=== PATIENT | female | born 1945 | race Caucasian/White ===

== ENCOUNTER → 2017-08-07 | Outpatient (CLI) | payer OTHER ==
[~2017-08-07] MED LIST: TIZANIDINE HCL2 MG PO
== END | disposition home or self-care (01) ==
LOC: MRI 10:00
DX: M54.17 Radiculopathy, lumbosacral region (principal)
CPT/HCPCS: 72148

== ENCOUNTER → 2017-12-02 | Outpatient (CLI) | payer OTHER | END | disposition home or self-care (01) | LOC: MAMO-SONO 11:47 | DX: Z12.31 Encounter for screening mammogram for malignant neoplasm of breast (principal); Z87.898 Personal history of other specified conditions; N60.11 Diffuse cystic mastopathy of right breast; N60.12 Diffuse cystic mastopathy of left breast ==

== ENCOUNTER → 2018-09-06 | Outpatient (CLI) | payer OTHER | END | disposition home or self-care (01) | LOC: LAB 09:02 | DX: D50.8 Other iron deficiency anemias (principal); N30.00 Acute cystitis without hematuria; I10 Essential (primary) hypertension; E78.49 Other hyperlipidemia; Z12.11 Encounter for screening for malignant neoplasm of colon; E55.9 Vitamin D deficiency, unspecified ==

== ENCOUNTER 2018-09-09 10:16 | Outpatient (CLI) | payer OTHER | END 2018-09-09 10:18 | disposition home or self-care (01) | LOC: NUCLEAR 10:16 | DX: M81.0 Age-related osteoporosis without current pathological fracture (principal) ==

== ENCOUNTER 2018-10-30 18:30 | Emergency (ER) | payer OTHER ==
[~2018-10-30] VITALS: Ht 160 cm; Wt 63.5 kg
[2018-10-30] MEDS ORDERED: ZOCOR20 MG (18:38)
[2018-10-30] MEDS ORDERED: TOPROL XL50 M1 (18:39)
== END 2018-10-30 21:01 | disposition home or self-care (01) ==
LOC: ER 18:30
DX: S00.81XA Abrasion of other part of head, initial encounter (principal); S50.312A Abrasion of left elbow, initial encounter; S80.812A Abrasion, left lower leg, initial encounter; W18.39XA Other fall on same level, initial encounter; Y93.89 Activity, other specified; Y92.512 Supermarket, store or market as the place of occurrence of the external cause; Y99.8 Other external cause status

== ENCOUNTER 2019-03-18 14:32 | Outpatient (CLI) | payer OTHER ==
[~2019-03-18 14:32] MED LIST changes: +TOPROL XL50 M1; +ZOCOR20 MG
[2019-03-18] MEDS ORDERED: OSEL75CA PO (17:09)
[2019-03-18] MEDS ORDERED: DELSYM30 MG/5 M1 PO (17:09)
[2019-03-18] MEDS ORDERED: TYLENOL COLD H1 EAC1 PO (17:09)
== END 2019-03-18 14:40 | disposition home or self-care (01) ==
LOC: LAB 14:32
DX: J11.1 Influenza due to unidentified influenza virus with other respiratory manifestations (principal)

== ENCOUNTER 2019-03-18 16:01 | Emergency (ER) | payer OTHER ==
[~2019-03-18] VITALS: Ht 160 cm; Wt 64.4 kg
[2019-03-18] MEDS ORDERED: TYLENOL COLD H1 EAC1 PO (17:09)
[2019-03-18] MEDS ORDERED: DELSYM30 MG/5 M1 PO (17:09)
[2019-03-18] MEDS ORDERED: OSEL75CA PO (17:09)
== END 2019-03-18 17:17 | disposition home or self-care (01) ==
LOC: ER 16:01
DX: J09.X2 Influenza due to identified novel influenza A virus with other respiratory manifestations (principal)

== ENCOUNTER 2020-01-11 13:53 | Outpatient (CLI) | payer OTHER ==
[~2020-01-11 13:53] MED LIST changes: +DELSYM30 MG/5 M1 PO; +OSEL75CA PO; +TYLENOL COLD H1 EAC1 PO
== END 2020-01-11 14:11 | disposition home or self-care (01) ==
LOC: RAD 13:53
PROVIDERS: ATTEND Internal Medicine Rheumatology
DX: M15.8 Other polyosteoarthritis (principal); M46.1 Sacroiliitis, not elsewhere classified; M51.27 Other intervertebral disc displacement, lumbosacral region

== ENCOUNTER 2020-07-03 11:56 | Outpatient (CLI) | payer OTHER | END 2020-07-04 07:37 | disposition home or self-care (01) | LOC: RAD 11:56 | PROVIDERS: ATTEND Internal Medicine Rheumatology | DX: K80.80 Other cholelithiasis without obstruction (principal); M47.817 Spondylosis without myelopathy or radiculopathy, lumbosacral region; M50.323 Other cervical disc degeneration at C6-C7 level; M54.5 Low back pain; M48.07 Spinal stenosis, lumbosacral region | CPT/HCPCS: 72148 ==

== ENCOUNTER → 2020-07-03 12:23 | Outpatient (CLI) | payer OTHER | END | disposition home or self-care (01) | LOC: LAB 12:23 | PROVIDERS: ATTEND Family Medicine | DX: H16.223 Keratoconjunctivitis sicca, not specified as Sjogren's, bilateral (principal); D64.89 Other specified anemias ==

== ENCOUNTER → 2020-07-10 07:00 | Outpatient (CLI) | payer OTHER | END | disposition home or self-care (01) | LOC: PPH VACUNA 07:00 | PROVIDERS: ATTEND Emergency Medicine Pediatric Emergency Medicine | DX: Z23 Encounter for immunization (principal) ==

== ENCOUNTER 2021-03-01 08:00 | Outpatient (CLI) | payer OTHER | END 2021-03-01 08:30 | disposition home or self-care (01) | LOC: PPH VACUNA 08:00 | PROVIDERS: ATTEND Emergency Medicine Pediatric Emergency Medicine | DX: Z23 Encounter for immunization (principal) ==

== ENCOUNTER → 2021-06-10 11:17 | Outpatient (CLI) | payer OTHER | END | disposition home or self-care (01) | LOC: LAB 11:17 | PROVIDERS: ATTEND Emergency Medicine Pediatric Emergency Medicine | DX: Z20.828 Contact with and (suspected) exposure to other viral communicable diseases (principal) ==

== ENCOUNTER 2021-10-01 10:57 | Outpatient (CLI) | payer OTHER | END 2021-10-01 10:58 | disposition home or self-care (01) | LOC: MAMO-SONO 10:57 | PROVIDERS: ATTEND Internal Medicine Geriatric Medicine | DX: Z12.31 Encounter for screening mammogram for malignant neoplasm of breast (principal); C50.919 Malignant neoplasm of unspecified site of unspecified female breast; N63.0 Unspecified lump in unspecified breast; N64.4 Mastodynia; N60.12 Diffuse cystic mastopathy of left breast; N60.11 Diffuse cystic mastopathy of right breast ==

== ENCOUNTER 2021-10-28 13:30 | Outpatient (CLI) | payer OTHER | END 2021-10-28 13:50 | disposition home or self-care (01) | LOC: PPH VACUNA 13:30 | PROVIDERS: ATTEND Emergency Medicine Pediatric Emergency Medicine | DX: Z23 Encounter for immunization (principal) ==

== ENCOUNTER 2021-11-08 10:41 | Outpatient (CLI) | payer OTHER | END 2021-11-08 12:42 | disposition home or self-care (01) | LOC: LAB 10:41 | PROVIDERS: ATTEND Emergency Medicine Pediatric Emergency Medicine | DX: Z03.818 Encounter for observation for suspected exposure to other biological agents ruled out (principal) ==

== ENCOUNTER 2022-01-01 11:54 | Outpatient (CLI) | payer OTHER | END 2022-01-01 12:07 | disposition home or self-care (01) | LOC: MRI 11:54 | PROVIDERS: ATTEND Physical Medicine & Rehabilitation | DX: M25.511 Pain in right shoulder (principal) | CPT/HCPCS: 73221 ==

== ENCOUNTER 2022-02-19 13:19 | Outpatient (CLI) | payer OTHER | END 2022-02-19 13:29 | disposition home or self-care (01) | LOC: PPH VACUNA 13:19 | PROVIDERS: ATTEND Emergency Medicine Pediatric Emergency Medicine | DX: Z23 Encounter for immunization (principal) ==

== ENCOUNTER 2022-04-02 12:17 | Outpatient (CLI) | payer OTHER | END 2022-04-02 12:21 | disposition home or self-care (01) | LOC: RAD 12:17 | PROVIDERS: ATTEND Internal Medicine Rheumatology | DX: M15.8 Other polyosteoarthritis (principal); M25.562 Pain in left knee; M25.561 Pain in right knee ==

== ENCOUNTER 2022-11-05 09:16 | Outpatient (CLI) | payer OTHER | END 2022-11-05 09:19 | disposition home or self-care (01) | LOC: NUCLEAR 09:16 | PROVIDERS: ATTEND Internal Medicine Rheumatology | DX: I87.2 Venous insufficiency (chronic) (peripheral) (principal) ==

== ENCOUNTER 2023-01-28 10:31 | Outpatient (CLI) | payer OTHER | END 2023-01-28 10:41 | disposition home or self-care (01) | LOC: MAMO-SONO 10:31 | PROVIDERS: ATTEND Internal Medicine Geriatric Medicine | DX: Z12.31 Encounter for screening mammogram for malignant neoplasm of breast (principal); C50.919 Malignant neoplasm of unspecified site of unspecified female breast; N63.0 Unspecified lump in unspecified breast; N64.4 Mastodynia; N60.11 Diffuse cystic mastopathy of right breast; N60.12 Diffuse cystic mastopathy of left breast ==

== ENCOUNTER 2023-08-28 10:04 | Outpatient (CLI) | payer OTHER | END 2023-08-28 10:17 | disposition home or self-care (01) | LOC: RAD 10:04 | DX: M25.542 Pain in joints of left hand (principal) ==

== ENCOUNTER 2024-06-27 11:17 | Outpatient (CLI) | payer OTHER ==
[~2024-06-27 11:17] MED LIST changes: +CYMBALTA30 MG PO; +MEDROLPACK PO; +METHOCARBAMOL500 MG PO
[2024-06-27 16:16] LABS: MYCOPLASMA PNEUMONIAE IGM NON REACTIVE (NO REACTIVE)
== END 2024-06-27 12:41 | disposition home or self-care (01) ==
LOC: LAB 11:17
PROVIDERS: ATTEND Emergency Medicine
DX: U07.1 COVID-19 (principal)

== ENCOUNTER 2024-10-27 11:38 | Outpatient (CLI) | payer OTHER | END 2024-10-27 11:41 | disposition home or self-care (01) | LOC: NUCLEAR 11:38 | PROVIDERS: ATTEND Internal Medicine Rheumatology | DX: M81.0 Age-related osteoporosis without current pathological fracture (principal) ==

== ENCOUNTER → 2025-02-28 | Outpatient (CLI) | payer OTHER ==
[~2025-02-28] MED LIST changes: +GABAPENTIN300 MG PO; +OMEPRAZOLE-BIC1 EAC1 PO
== END | disposition home or self-care (01) ==
LOC: MAMO-SONO 10:57
PROVIDERS: ATTEND Internal Medicine Geriatric Medicine
DX: N64.4 Mastodynia (principal); N63.0 Unspecified lump in unspecified breast; N60.12 Diffuse cystic mastopathy of left breast; N60.11 Diffuse cystic mastopathy of right breast; C50.919 Malignant neoplasm of unspecified site of unspecified female breast; Z12.31 Encounter for screening mammogram for malignant neoplasm of breast; M75.51 Bursitis of right shoulder; M75.101 Unspecified rotator cuff tear or rupture of right shoulder, not specified as traumatic
CPT/HCPCS: 73221

== ENCOUNTER 2025-03-01 13:55 | Inpatient (IN) | payer OTHER ==
[~2025-03-01] VITALS: Ht 160 cm; Wt 57.2 kg
[~2025-03-01 13:55] MED LIST changes: -GABAPENTIN300 MG PO; -OMEPRAZOLE-BIC1 EAC1 PO
[2025-03-01 14:33] LABS: BASO % 0.4 % (0.1-1.2); EOS # 0.14 (0.04-0.54); EOS % 1.7 % (0.7-7.0); LYMPH # 2.60 (1.18-3.74); LYMPH % 32.2 % (19.3-53.1); MEAN PLATELET VOLUME 9.20 fl (9.4-12.4); MONO # 0.77 (0.24-0.82); MONO % 9.5 % (4.7-12.5); NEUT # 4.53 (1.56-6.13); NEUT % 56.1 % (34.0-71.1); RED CELL DISTRIBUTION WIDTH 14.6 % (11.6-14.4)
[2025-03-01 14:59] LABS: ALT/SGPT 24.0 U/L (12-78); AST/SGOT 25.0 U/L (15-37); BILIRUBIN TOTAL 0.56 mg/dL (0.3-1.2); BUN CREA RATIO 25.0 (7.0-25.0); CREATININE SERUM 0.85 mg/dL (0.55-1.02); GFR 64.35; GLOBULINA 3.8 G/DL (2.4-3.5); GLUCOSE FASTING 95.0 mg/dL (65-100); OSMOLALITY SERUM 288.0 MOSM/KG (275-295)
[2025-03-01 15:08] LABS: URINE APPEARANCE Clear; URINE BILIRRUBIN Negative (NEGATIVE); URINE BLOOD Negative; URINE COLOR Yellow; URINE GLUCOSE Negative (NEGATIVE); URINE KETONE Negative (NEGATIVE); URINE LEUKOCYTE Small; URINE NITRATE Negative; URINE PROTEIN Negative (NEGATIVE); URINE UROBILINOGEN 0.2 E.U./dl
[2025-03-01 15:12] LABS: URINE BACTERIA 169.1 uL (0.0-1933); URINE EPITHELIAL CELLS 12.9 uL (0.0-38.8); URINE RBC 9.2 uL (0.0-20.8); URINE WBC 18.9 uL (0.0-23.2)
[2025-03-01 15:16] LABS: URINE CAST 0.00 uL (0.0-1.40)
[2025-03-01] MEDS ORDERED: FAMOTIDINE/PF 20 MG in 0.9 % SODIUM CHLORIDE 8 ML IV PUSH SCH (16:25)
[2025-03-01] MEDS ORDERED: 0.9 % SODIUM CHLORIDE 1,000 ML IV SCH (16:30)
[2025-03-01] MEDS ORDERED: ACETAMINOPHEN 500 MG GEL..CAP PO PRN (16:30)
[2025-03-01] MEDS ORDERED: ENOXAPARIN SODIUM 40 MG/0.4 ML SYRINGE SUBCUTANEO SCH (17:12)
[2025-03-01] MEDS ORDERED: GABAPENTIN 300 MG CAPSULE PO SCH (17:13)
[2025-03-01] MEDS ORDERED: LABETALOL HCL 100 MG/20 ML ML IV PUSH PRN (17:15)
[2025-03-01] MEDS ORDERED: ATORVASTATIN CALCIUM 40 MG TABLET PO SCH (17:16)
[2025-03-01] MEDS ORDERED: FAMOTIDINE/PF 20 MG/2 ML VIAL ONE (17:33)
[2025-03-01 17:54] LABS: ABG PH 7.425 (7.35-7.45); ABG PO2 94.2 mmHg (80-100); BICARBONATE 24.9 mmol/l (23-25); o2 21 %
[2025-03-01 18:30] LABS: COVID-19 AG NEGATIVE (NEGATIVE)
[2025-03-01 19:18] VITALS: BP 165/77; O2SAT 97
[2025-03-01 19:47] LABS: INR 1.01
[2025-03-01] MEDS ORDERED: DEXAMETHASONE SODIUM PHOSPHATE 4 MG/ML VIAL IV SCH (21:00)
[2025-03-02 01:33] VITALS: BP 127/78; O2SAT 97
[2025-03-02 08:28] VITALS: BP 142/82; O2SAT 95
[2025-03-02] MEDS ORDERED: GABAPENTIN300 MG PO (14:55)
[2025-03-02] MEDS ORDERED: MEDROLPACK PO (14:55)
[2025-03-02] MEDS ORDERED: OMEPRAZOLE-BIC1 EAC1 PO (15:03)
[2025-03-02] MEDS ORDERED: ROSUVASTATIN CALCIUM 20 MG TABLET PO SCH (17:00)
[2025-03-03] MEDS ORDERED: PATIENTS OWN MEDICATION (MEDICAMENTO EN PISO) PO SCH ×2 (06:00→09:00)
== END 2025-03-02 15:38 | disposition home or self-care (01) | DRG 948 ==
LOC: ER 13:55 → SURH 16:53 → SEC-K 16:53 → SURH 17:09
PROVIDERS: General Practice; ADMIT Internal Medicine Geriatric Medicine; ATTEND Internal Medicine Geriatric Medicine
PROC: B020ZZZ Computerized Tomography (CT Scan) of Brain (ICD-10-PCS; principal; 2025-03-01)
PROC: B030ZZZ Magnetic Resonance Imaging (MRI) of Brain (ICD-10-PCS; 2025-03-01)
PROC: BR39ZZZ Magnetic Resonance Imaging (MRI) of Lumbar Spine (ICD-10-PCS; 2025-03-01)
DX: R53.1 Weakness (principal); M12.811 Other specific arthropathies, not elsewhere classified, right shoulder; M51.9 Unspecified thoracic, thoracolumbar and lumbosacral intervertebral disc disorder; M25.511 Pain in right shoulder; M48.062 Spinal stenosis, lumbar region with neurogenic claudication
CPT/HCPCS: 70551; 72148